=== PATIENT | female | born 1940 | race American Indian/Alaskan Native ===

== ENCOUNTER 2018-10-06 09:14 | Emergency (ER) | payer MEDICARE, MEDICAID ==
[2018-10-06 09:28] VITALS: BMI 28.8
[2018-10-06] MEDS ORDERED: Sodium Chloride 0.9% 1,000 ML IV ONE (09:52)
[2018-10-06] MEDS ORDERED: Sodium Chloride 0.9% 1,000 ML ONE (10:30)
[2018-10-06 11:37] LABS: BASO # 0.1 K/uL (0.0-0.2); BASO % 0.9 % (0.0-2.0); HEMOGLOBIN 10.7 g/dL (11.0-16.0); LYMPH # 2.3 K/uL (1.0-4.3); LYMPH % 33.6 % (20.0-40.0); MEAN CELL VOLUME 87.7 fL (81.0-99.0); MEAN CORPUSCULAR HEMOGLOBIN 29.7 pg (27.0-31.0); MEAN CORPUSCULAR HGB CONC 33.9 g/dL (33.0-37.0); MEAN PLATELET VOLUME 8.6 fL (7.2-11.7); MONO % 14.3 % (0.0-10.0); NEUT # 3.4 K/uL (1.8-7.0); NEUT % 51.2 % (50.0-75.0); RBC 3.61 Mil/uL (3.80-5.20); RED CELL DISTRIBUTION WIDTH 16.7 % (11.5-14.5); WHITE BLOOD COUNT 6.7 K/uL (4.8-10.8)
[2018-10-06 11:59] LABS: ALBUMIN 3.7 g/dL (3.5-5.0); ALT/SGPT 16 U/L (9-52); AST/SGOT 23 U/L (14-36); BLOOD UREA NITROGEN 13 mg/dL (7-17); CALCIUM 8.5 mg/dl (8.6-10.4); GFR NON-AFRICAN AMERICAN 53; LIPASE 43 U/L (23-300)
[2018-10-06 12:33] LABS: SQUAMOUS EPITHIAL 13 /hpf (0-5); URINE BACTERIA MANY (<OCC); URINE BILIRUBIN NEGATIVE (NEGATIVE); URINE BLOOD 2+ (NEGATIVE); URINE CLARITY Hazy (Clear); URINE COLOR Yellow (YELLOW); URINE GLUCOSE (UA) NORMAL (Normal); URINE LEUKOCYTE ESTERASE TRACE Leu/uL (Negative); URINE PROTEIN NEGATIVE (NEGATIVE); URINE UROBILINOGEN NORMAL mg/dL (0.2-1.0)
--- NOTE | 2018-10-06 14:04 | C.PDOC ---
History Of Present Illness 78 y/o female presents to ED with c/o mild diffuse abdominal pain associated with several episodes of non bloody diarrhea for 2 days. Patient denies recent travel, dysuria, fever, vomiting, hematuria or any other complaints at this t nicolas. Chief Complaint (Nursing): Abdominal Pain History Per: Patient History/Exam Limitations: no limitations Onset/Duration Of Symptoms: Days Current Symptoms Are (Timing): Still Present Past Medical History Reviewed: Historical Data, Nursing Documentation, Vital Signs Vital Signs: Last Vital Signs Temp 99.4 F 10/06/18 09:29 Pulse 74 10/06/18 11:05 Resp 16 10/06/18 11:05 BP 121/51 L 10/06/18 11:05 Pulse Ox 98 10/06/18 11:05 - Medical History PMH: HTN, Hypercholesterolemia, Peripheral Edema Surgical History: No Surg Hx - [facility] Procedures ASSIST VAG HYSTER(LAVH) (04/07/14) CYSTOCEL/RECTOCEL REPAIR (04/07/14) CYSTOSCOPY NEC (04/07/14) LAPAROSCOP REMOVE OVARIES/TUBES (04/07/14) LAPAROSCOPIC ROBOTIC ASSISTED PROCEDURE (04/07/14) VAGINAL SUSPENS & FIXAT (04/07/14) Family History: States: No Known Family Hx - Social History Hx Alcohol Use: No Hx Substance Use: No - Immunization History Hx Tetanus Toxoid Vaccination: Yes Hx Influenza Vaccination: Yes Hx Pneumococcal Vaccination: Yes Review Of Systems Constitutional: Negative for: Fever, Chills Gastrointestinal: Positive for: Abdominal Pain, Diarrhea. Negative for: Vomiting Genitourinary: Negative for: Dysuria, Hematuria Skin: Negative for: Rash Physical Exam - Physical Exam Appears: Non-toxic, No Acute Distress Skin: Warm, Dry, No Rash Head: Atraumatic, Normacephalic Eye(s): bilateral: Normal Inspection Oral Mucosa: Moist Neck: Normal ROM, Supple Cardiovascular: Rhythm Regular Respiratory: Normal Breath Sounds, No Rales, No Rhonchi, No Wheezing Gastrointestinal/Abdominal: Soft, Tenderness (Mild diffuse), No Guarding, No Rebound Back: No CVA Tenderness Neurological/Psych: Oriented x3, Normal Speech, Normal Cognition ED Course And Treatment - Laboratory Results Result Diagrams: 10/06/18 11:23 10/06/18 11:23 O2 Sat by Pulse Oximetry: 98 (RA) Pulse Ox Interpretation: Normal Disposition - Disposition Referrals: David Interiano MD [Medical Doctor] - Disposition: HOME/ ROUTINE Disposition Time: 15:00 Condition: GOOD Additional Instructions: HAI BOWSER, thank you for letting us take care of you today. The emergency medical care you received today was directed at your acute symptoms. If you were prescribed any medication, please fill it and take as directed. It may take several days for your symptoms to resolve. Return to the Emergency Department if your symptoms worsen, do not improve, or if you have any other problems. Please contact your doctor or call one of the physicians/clinics you have been referred to that are listed on the Patient Visit Information form that is included in your discharge packet. Bring any paperwork you were given at discharge with you along with any medications you are taking to your follow up visit. Our treatment cannot replace ongoing medical care by a primary care provider outside of the emergency department. Thank you for allowing the [facility] team to be part of your care today. Follow up with your primary care doctor this week for re-evaluation and further management. Prescriptions: Sulfamethoxazole/Trimethoprim [Bactrim DS 800 mg-160 mg] 1 tab PO BID #14 tab Instructions: Urinary Tract Infection, Adult (DC) Forms: [employer] ([place] Islander) - Clinical Impression Clinical Impression: UTI (urinary tract infection) - Scribe Statement The provider has reviewed the documentation as recorded by the [place] Bro All medical record entries made by the Scribe were at my direction and personally dictated by me. I have reviewed the chart and agree that the record accurately reflects my personal performance of the history, physical exam, medical decision making, and the department course for this patient. I have also personally directed, reviewed, and agree with the discharge instructions and disposition.
[2018-10-06] MEDS ORDERED: Iodixanol 320 mg/ml 150 ml Bottle IV ONE (14:35)
--- NOTE | 2018-10-06 15:34 | CT ---
Date of service: 10/06/2018 PROCEDURE: CT Abdomen and Pelvis with contrast HISTORY: upper abdominal pain with diarrhea COMPARISON: None available. TECHNIQUE: Contrast dose: 100 mL Visipaque 320 IV Radiation dose: Total exam DLP = 869.18 mGy-cm. This CT exam was performed using one or more of the following dose reduction techniques: Automated exposure control, adjustment of the mA and/or kV according to patient size, and/or use of iterative reconstruction technique. FINDINGS: LOWER THORAX: Mild medial right lower lobe atelectasis. No visible pleural effusion or pneumothorax. LIVER: Too small to characterize 6 mm left hepatic lobe hypodensity; statistically likely cyst or hemangioma. GALLBLADDER AND BILE DUCTS: Cholelithiasis. PANCREAS: Fatty atrophy of the pancreas. SPLEEN: Indeterminate 2.5 x 3.1 cm heterogeneous mass, anterior spleen. ADRENALS: Unremarkable. KIDNEYS AND URETERS: The kidneys enhance symmetrically. No hydronephrosis or obstructing calculus identified. VASCULATURE: No aortic aneurysm. Atherosclerotic calcifications of the aorta. BOWEL: Stomach is nondistended. Lack of oral contrast limits evaluation for bowel pathology. Bowel loops appear within normal limits of caliber without evidence of obstruction. APPENDIX: The appendix appears within normal limits of caliber. No secondary signs of acute appendicitis. PERITONEUM: No significant free fluid. No definite free air. LYMPH NODES: Nonspecific sub cm mesenteric lymph nodes. Mild hazy infiltration of the mesentery. BLADDER: Unremarkable. REPRODUCTIVE: Unremarkable. BONES: Degenerative changes of the spine. Osseous demineralization. OTHER FINDINGS: None. IMPRESSION: Sub cm mesenteric lymph nodes. Mild hazy infiltration of the mesentery. Correlate clinically for mesenteric adenitis/panniculitis. Indeterminate 2.5 x 3.1 cm heterogeneous mass located within the anterior aspect of the spleen. Cholelithiasis. 6 mm too small to characterize left hepatic lobe hypodensity; statistically likely cyst or hemangioma. Mild medial right lower lobe atelectasis. Additional findings as above.
[2018-10-06 15:54] VITALS: BP 128/68; PULSE 96; RESP 20; TEMP 98.3
[2018-10-06 18:27] VITALS: O2SAT 98
== END 2018-10-06 15:55 | disposition home or self-care (01) ==
LOC: C.ER 09:14
DX: N39.0 Urinary tract infection, site not specified (principal)
CPT/HCPCS: 74177; 80053; 81001; 82948; 83690; 85025; 87086; 87181; 96374; 96375; 99285; J2405; J7030; Q9967